=== PATIENT | female | born 1940 | race Caucasian/White ===

== ENCOUNTER 2016-02-08 07:00 | Inpatient (IN) | payer OTHER ==
[~2016-02-08] VITALS: Ht 144.8 cm; Wt 51.7 kg
[~2016-02-08 07:00] MED LIST: DIPHENOXYLATE-1 EACH PO; HYDROCHLOROTHIA25 M1; HYDROCHLOROTHIA25 M1 PO; IRON325 M3 PO; K-TAB ER10 MEQ PO; KLOR-CON20 ME1 PO; LOMOTIL 2.5-0.1 EACH PO; LYRICA25 M1 PO; METOPROLOL SUCC25 M1 PO; METOPROLOL TART25 M1 PO; OCTREOTIDE100 MCG/1 SC; POTASSIUM CHLO20 ME2 PO; PROBIOTIC & AC1 EACH PO; PROCHLORPERAZIN10 MG PO; TUMS200 MG PO; TYLENOL #31 TAB PO; TYLENOL325 M1 PO; VITAMIN B COMP1 EACH PO; VITAMIN C1000 M4 PO; VITAMIN D3400 UNI1 PO; ZOFRAN4 M2 PO
--- NOTE | 2016-03-06 09:39 | History & Physical Pre-Op ---
General Information and HPI History of Present Illness: patient returns for consideration of reversal of her colostomy. She presented in May 2015 with colonic obstruction requiring emergent rectosigmoid resection of a T4b N0 colon cancer. She failed adjuvant chemotherapy due to severe diarrhea. She has since undergone completion colonoscopy and is ready to have her colostomy reversed. She feels much better since cessation of her chemotherapy. She also feels that overall her health is much better than it was prior to surgery due to chronic fatigue which has since resolved. Allergies/Medications Allergies: Coded Allergies: aloe (Mild, RASH 06/06/15) Home Med list Metoprolol Succinate 25 MG TAB.ER.24H 1 TAB PO QAM BP (Reported) Pregabalin (Lyrica) 25 MG CAPSULE 1 CAP PO QHS NERVE SENSATION IN BACK ( Reported) Past History Medical History Neurological: NONE EENT: NONE Cardiovascular: hypertension, "SLIGHT HEART ATTACK" Respiratory: pneumonia Gastrointestinal: NONE Hepatic: NONE Renal: NONE Musculoskeletal: chronic back pain, polio Psychiatric: NONE Endocrine: NONE Blood Disorders: NONE Cancer(s): colon/rectal cancer, SPINAL TUMOR History of MRSA: Yes History of VRE: No History of CDIFF: No Surgical History Pertinent Surgical History: appendectomy, colon resection, cataract removal, c- section, hip replacement Past Family/Social History Family History Relations & Conditions if any uncles (Leukemia in one uncleThroat Cancer in another uncle). FATHER (colon cancer). MOTHER (ovarian cancer). Psychosocial History Services at Home None Functional Ability ADLs Independent: dressing, eating, toileting, bathing. Ambulation: independent IADLs Independent: shopping, housework, finances, food prep, telephone, transportation , medication admin. Review of Systems Review of Systems: Patient reports weight gain (5lbs) but reports no fatigue, no fever, no night sweats, no significant weight loss, and no exercise intolerance. She reports no abnormal moles, no jaundice, no hives, no eczema, and no rashes. She reports no dry eyes, no irritation, no vision change, and no discharge. She reports no hearing loss, no ear pain, no sneezing, no frequent nosebleeds, no nose/sinus problems, no bleeding gums, no snoring, no dry mouth, no mouth ulcers, no oral abnormalities, no teeth problems, no headaches, and no sore throat. She reports no cough, no wheezing, no shortness of breath, and no coughing up blood. She reports no chest pain, no arm pain on exertion, no shortness of breath when walking, no shortness of breath when lying down, no palpitations, and no leg swelling. She reports no abdominal pain, no vomiting, no vomiting blood, normal appetite, no diarrhea, no constipation, no rectal bleeding, and no history of GERD. She reports no incontinence, no difficulty urinating, no hematuria, and no increased frequency. She reports no muscle aches, no muscle weakness, no arthralgias/joint pain, and no back pain. She reports no gynecologic complaints. She reports no issues with sexual function or body image. Exam & Diagnostic Data Last 24 Hrs of Vital Signs/I&O Patient is a 75-year-old female. Constitutional: General Appearance: healthy-appearing, well-nourished, and well- developed. Level of Distress: no acute distress. Ambulation: ambulating normally. Physical Exam: Head: Head: normocephalic and atraumatic. Neck: Neck: supple, trachea midline, no masses, and full range of motion. Thyroid: no enlargement or nodules and non-tender. Lymph Nodes: no cervical LAD, supraclavicular LAD, axillary LAD, or inguinal LAD. Cardiovascular: Heart Auscultation: normal S1 and S2; no murmurs, rubs, or gallops; and regular rate and rhythm. Lungs: Respiratory effort: no dyspnea. Percussion: no dullness, flatness, or hyperresonance. Auscultation: no wheezing, rales/crackles, or rhonchi and breath sounds normal, good air movement, and clear to auscultation. Back: Thoracolumbar Appearance: normal curvature. Abdomen: Inspection and Palpation: no tenderness, guarding, masses, rebound tenderness, or CVA tenderness and soft and non-distended. Bowel Sounds: normal. Liver: non-tender and no hepatomegaly. Spleen: non-tender and no splenomegaly. Hernia: none palpable; functioning stoma LLQ.. Skin: Inspection and palpation: no rash, lesions, ulcer, induration, nodules, jaundice, or abnormal nevi and good turgor. Musculoskeletal:: Extremities: no cyanosis, edema, varicosities, or palpable cord. Motor Strength and Tone: normal tone and motor strength. Joints, Bones, and Muscles: no contractures, malalignment, tenderness, or bony abnormalities and normal movement of all extremities. Psychiatric: Insight: good judgement and insight. Mental Status: normal mood and affect and active and alert. Orientation: to time, place, and person. Memory: recent memory normal and remote memory normal. Assessment/Plan Assessment/Plan: 1. Primary malignant neoplasm of rectosigmoid junction - well recovered following rectosigmoid resection with end colostomy. chemotherapy was discontinued due to adverse reaction. She has since undergone colonoscopy which shows no other areas of neoplasia. She is ready for colostomy reversal. Cardiac preop completed. preop bowel prep ordered. 2. Colostomy present Z93.3: Colostomy status Discussion Notes Discussed the risk of surgery including but not limited to: bleeding requiring transfusion, infection, anastomotic leak requiring reoperation as well as medical complications including cardiac, pulmonary and thromboembolism. As Ranked By This Provider Problem List: 1. Cancer of rectosigmoid junction 2. Colostomy status
[2016-03-07] MEDS ORDERED: LISINOPRIL10 M1 PO (13:04)
--- NOTE | 2016-03-07 13:05 | Admission Core Measures ---
Admission Meds I reviewed the following Meds: Current Medications Sig/Samantha Start time Last Medication Dose Stop Time Status Admin Cefazolin Sodium 2,000 MG ONCE 03/07 0000 NR (Kefzol-Ancef Inj) 03/07 235 Lisinopril 10 MG DAILY 03/08 1000 UNVr (Prinivil) Metoprolol Tartrate 25 MG QAM 03/08 1000 UNVr (Lopressor) Metronidazole 500 MG ONCE 03/07 0000 NR (Flagyl) 03/07 235 Sodium Chloride 100 ML (Normal Saline 0.9%) Pregabalin 25 MG .[QHS] 03/07 1315 UNVr (Lyrica) Acute Coronary Syndrome Inclusion Criteria ACS Diagnosis No Inpatient Core Measures LDL Reminder: If No, please order W/I first 24hr of stay Congestive Heart Failure Inclusion Criteria CHF Diagnosis No Cerebrovascular accident Inclusion Criteria CVA/TIA Diagnosis No Inpatient Core Measures Bedside Swallow Eval Reminder: If BSE failed, place ST order Antithrombotic Reminder: Order Antithrombotic Medication by end of day 2 Antithrombotic Reminder: Document Reason Antithrombotic Not ordered by end of day 2 AFIB/Flutter Reminder: If Present, add to problem list AFIB/Flutter Reminder: Order Anticoag Medication for pts with AFIB/Flutter Atherosclerosis Reminder: If Present, add to problem list LDL Reminder: If No, please order W/I first 24hr of stay PT Order Reminder: If No, please order Venous thromboembolism Inpatient Core Measures VTE Risk Factors: Age > 40, Surgery VTE Prophylaxis [facility] d/t No contraindications No VTE Pharm Prophylaxis d/t No contraindications Inclusion Criteria - Per Current guidelines, there needs to be overlap - treatment for the first 5 days of Warfarin therapy. - Parenteral Anticoagulation (IV or SC) needs to be - given along with Warfarin therapy. VTE Diagnosis No VTE Type NONE VTE Confirmed by (Test) NONE Problem List As ranked by this Provider includes Assessment & Plan 1. Colostomy status HOME MEDS Home Med List Lisinopril 10 MG TABLET 1 TAB PO DAILY BLOOD PRESSURE (Reported) Metoprolol Succinate 25 MG TAB.ER.24H 1 TAB PO QAM BP (Reported) Pregabalin (Lyrica) 25 MG CAPSULE 1 CAP PO QHS NERVE SENSATION IN BACK ( Reported)
--- NOTE | 2016-03-07 13:09 | Operative Report ---
Operative/Inv Procedure Report Surgery Date: 03/07/16 Name of Procedure: Colostomy reversal with lysis of adhesions Pre-Operative Diagnosis: Colon cancer Colostomy status Colon cancer Colostomy status Post-Operative Diagnosis: Same same Estimated Blood Loss: 50ml to 100ml Surgeon/Stockfeed Miller: ED GUPTA,NOAH Faulkner/Brittny CRUZ Anesthesia: general endotracheal tube Drains: None Specimens: Colostomy Operative Indication: Patient presents after diverting colostomy with rectal resection for obstructing T4 rectal cancer in May 2015. She underwent adjuvant chemotherapy and has completed follow-up colonoscopy. She presents for colostomy reversal Operative/Procedure Note Note: After consent she is brought to the operating room and laid supine. Gen. anesthesia was obtained she's placed in lithotomy position. The stoma was closed with a suture. Her abdomen was then prepped and draped. A midline incision was opened through pre-existing scar sharply. We dissected down to the fascia with cautery. The peritoneum was entered sharply we mobilized. Adhesions of omentum to the anterior abdominal wall were taken down with sharp and cautery dissection. A Bookwalter retraction system was then placed. There were numerous loops of small bowel adhered to the pelvis. These loops of adhesions small bowel were taken down with sharp dissection. One loop in particular was plastered to the presacral space due to the previous lymphadenectomy. We took about an hour to lyse a single loop of small bowel and eventually were able to bring up out of the pelvis and into the right upper quadrant where was packed out of the way. There is no enterotomy. The rectal stump was identified and was very low in the pelvis. We then took down the stoma by making an ellipse of skin sharply. We then dissected the stoma through subcutaneous tissues tissues with cautery. We then reduced into the perineal cavity and disconnected it from the undersurface. This was done with cautery as well. I then looked at the bowel. There was a small serosal tear which was repaired with interrupted 3-0 silk sutures. The stoma itself was intact and viable without evidence of serosal injury otherwise. So we took about 4 cm of the stoma and transected it and suture ligating the vessels and then placing a automatic purse javi and dividing the bowel. The stone was passed off the field. The colon was incised to a 28 EEA stapler. The anvils placed in her string tied down. The fatty tissue overlying the proposed anastomotic site was then taken off with cautery. I then broke scrub and went down below. Rigid proctoscopy revealed a very short stump, 5 cm. We placed the EEA stapler up through the rectal stump and created an and the anastomosis under direct vision the camera. There were 2 intact donuts. Testing of the anastomosis under water revealed no evidence of air leak. We then's irrigated the pelvis normal saline. The stoma site was fascia was closed with 0 Maxon sutures in 2 layers. The midline fascia was closed with 0 Maxon suture. Skin was closed with amelia. A portion of the stoma site was left open for packing with 1 inch iodoform gauze. Sterile dressings applied. Sponge and needle counts are correct CC: RACHEL RITCHIE DO; DAMARI GUPTA,DARNELL Torre
[2016-03-07 14:45] VITALS: BP 130/60
[2016-03-07 16:01] VITALS: BP 100/60
--- NOTE | 2016-03-07 16:38 | PN- General Surgery ---
Subjective Subjective: Post op check Awake, alert No complaints, denies nausea Pain well controlled - had a tap block and hasn't felt any pain post op Objective Vital Signs and I&Os Vital Signs Date Time Temp Pulse Resp B/P Pulse O2 O2 Flow FiO2 Ox Delivery Rate 03/07 1601 97.1 78 20 100/60 97 Room Air 03/07 1445 97.4 68 18 130/60 100 Room Air Intake & Output 03/07 1600 03/07 0800 03/07 0000 03/06 1600 03/06 0800 03/06 0000 Intake Total Output Total Balance Patient 115 lb Weight Physical Exam: afebrile, vss good urine output in rebollar General: alert and oriented times three Chest:clear anteriorly bilaterally, RRR Abd: soft, no bs, nondistended Dressings: slight bloody staining on dressing but dry Current Medications: Current Medications Sig/Samantha Start time Last Medication Dose Route Stop Time Status Admin Acetaminophen 650 MG Q4P PRN 03/07 1500 AC PO Cefazolin Sodium 2,000 MG ONCE 03/07 0000 DC IV 03/07 2359 Dextrose/Sodium 1,000 ML .[id number] 03/07 1500 AC Chloride IV Heparin Sodium 5,000 UNIT Q8 03/07 1400 AC 03/07 (Porcine) SC 1606 Lisinopril 10 MG DAILY 03/08 1000 AC PO Metoprolol Succinate 25 MG QAM 03/08 1000 AC PO Metronidazole 500 MG ONCE 03/07 0000 DC Sodium Chloride 100 ML IV 03/07 2359 Morphine Sulfate 2 MG Q3P PRN 03/07 1500 AC IV Ondansetron HCl 4 MG Q6P PRN 03/07 1500 AC IV Oxycodone/ 1 TAB Q4P PRN 03/07 1500 AC Acetaminophen PO Oxycodone/ 2 TAB Q4P PRN 03/07 1500 AC Acetaminophen PO Pregabalin 25 MG AT BEDTIME 03/07 2200 AC PO Assessment/Plan Assessment/Plan 75 yo female s/p colostomy reversal clears in the morning may have ice chips rebollar out in am PT in am - wbat pain mgmt Core Measures/Miscellaneous Venous Thromboembolism VTE Risk Factors: Age > 40, Surgery VTE Contraindications: No Contraindications VTE Prophylaxis Ordered Inpt Mech & Pharm VTE Diagnosis: No VTE Type: NONE VTE Confirmed by (Test): NONE Beta James Is Beta James a Home Med? Yes If Yes, Was This Ordered Today? Yes Antibiotics Is Patient on Antibiotics? No
[2016-03-07 18:10] VITALS: BP 102/60
[2016-03-07 19:58] VITALS: BP 100/62
[2016-03-08] VITALS (9 sets, daily range): BP systolic 90–170; BP diastolic 50–70
--- NOTE | 2016-03-08 01:19 | NUR ---
LATE ENTRY 03/07/16: PT REFUSES ALPS. NANCY ENGLISH AWARE.
--- NOTE | 2016-03-08 08:03 | PN- General Surgery ---
See Addendum Subjective Subjective: Awake, alert post op Complaints of pain overnight - relieved with meds Passed small amount of liquid stool last night Tolerating water this morning - awaiting tray of liquids Passed flatus this morning Objective Vital Signs and I&Os Vital Signs Date Time Temp Pulse Resp B/P Pulse O2 O2 Flow FiO2 Ox Delivery Rate 03/08 0654 98.2 75 20 140/60 96 Room Air 03/08 0402 98.2 75 20 154/56 96 Room Air 03/08 0025 98.8 75 20 130/60 97 Room Air 03/07 1958 97.9 87 20 100/62 99 Room Air 03/07 1810 98.0 66 20 102/60 97 Room Air 03/07 1601 97.1 78 20 100/60 97 Room Air 03/07 1445 97.4 68 18 130/60 100 Room Air Intake & Output 03/08 1600 03/08 0800 03/08 0000 03/07 1600 03/07 0800 03/07 0000 Intake Total 600 840 Output Total 350 480 Balance 250 360 Intake, IV 600 600 Intake, Oral 240 Number 0 Bowel Movements Output, Urine 350 480 Patient 115 lb Weight Physical Exam: afebrile, vss General: alert and oriented times three Chest: clear anteriorly bilaterally, RRR Abd: soft, nt/nd, good bs Ext: warm, no edema Wounds: mild bloody staining on dressings, dressings changed, no active bleeding or oozing amelia intact Assessment/Plan Assessment/Plan 75 yo female s/p colostomy reversal fu labs dc rebollar ?advance to fulls PT to help ambulate Core Measures/Miscellaneous Venous Thromboembolism VTE Risk Factors: Age > 40, Surgery VTE Contraindications: No Contraindications VTE Prophylaxis Ordered Inpt Mech & Pharm VTE Diagnosis: No VTE Type: NONE VTE Confirmed by (Test): NONE Beta James Is Beta James a Home Med? Yes If Yes, Was This Ordered Today? Yes Antibiotics Is Patient on Antibiotics? No
[2016-03-08 08:58] LABS: ABSOLUTE BASOPHIL COUNT 0 /CUMM (0.0-0.2); ABSOLUTE EOSINOPHIL COUNT 0 /CUMM (0.0-0.7); ABSOLUTE LYMPH COUNT 1.2 /CUMM (1.2-3.4); ABSOLUTE MONOCYTE COUNT 0.9 /CUMM (0.10-0.60); EOSINOPHIL % 0.2 % (0-5)
[2016-03-08 09:29] LABS: ABSOLUTE GRANULOCYTE CT 7.1 /CUMM (1.4-6.5); BASOPHIL % 0.1 % (0.0-2.0); GRANULOCYTE % 76.9 % (42.2-75.2); MEAN CORPUSCULAR HGB 28.5 PG (27.0-31.0); MEAN CORPUSCULAR HGB CONC 33.5 G/DL (33.0-37.0); MEAN CORPUSCULAR VOLUME 85.3 FL (81.0-99.0); MEAN PLATELET VOLUME 8.5 FL (7.4-10.4); PLATELET COUNT 154 /CUMM (130-400); RBC DISTRIBUTION WIDTH 15.7 % (11.5-14.5)
[2016-03-08 09:36] LABS: HEMATOCRIT 31.5 % (37-47); WHITE BLOOD CELL COUNT 9.2 /CUMM (4.8-10.8)
--- NOTE | 2016-03-08 10:54 | NUR ---
Physical Therapy: Patient refused treatment session secondary to complaints of significant pain. Was not willing to try and perform bed level activities. Will try again in PM.
--- NOTE | 2016-03-08 13:38 | NUR ---
Physical Therapy: Patient refused physical therapy a second time this afternoon. Complained of significant abdominal pain associated with her surgery and did not want to make it worse with movement. She refused bed level TherEx. Will attempt to see the patient tomorrow.
--- NOTE | 2016-03-08 16:18 | NUR ---
A X 2 TO BSC AT THIS TIME PT URINATED 250 ML, AND SMALL DARK BROWN, LIQUID BM WITH SCANT AMT BLOOD WHEN PT WIPED. SURGICAL PA MADE AWARE.
--- NOTE | 2016-03-08 17:46 | NUR ---
MST REPORTED AT THIS TIME THAT PT'S BP IS 100/60. BP CHECKED BY THIS NURSE AT THIS TIME 90/50, HR 60 ALL OTHER VSS. DENIES DIZZINESS OR LIGHTHEADEDNESS. IVF INFUSING ORDERED. PT JUST HAD DINNER-50% OF CLEAR LIQUID TRAY. DRESSING TO ABD CHANGED, SMALL AMT OF SS DRAINAGE THROUGH DRESSING. SURGICAL PA MADE AWARE, NO NEW ORDERS, RECHECK IN 1 HOUR. WILL CONTINUE TO MONITOR.
--- NOTE | 2016-03-08 20:56 | NUR ---
bp at this time 102/54 hr 60 denies symptoms of lightheadedness or dizziness but states "im concerned about my blood pressure, its never been this up and down and i just dont really feel like myself" stated that she came off of her bp meds preop but was restarted on them here postop and stated "i dont know if i was supposed to be i cant remember what Dr. Mejia said" call placed to surgical pa at this time to make aware.
--- NOTE | 2016-03-08 22:32 | NUR ---
SPOKE WITH SURGICAL NANCY DENTON AT THIS TIME SEE NEW ORDER TO INCREASE ORDERED IVF RATE FROM 75 TO 100 DUE TO BP, SEE PREVIOUS NOTES. ALSO, PT CONTINUES TO C/O ITCHING, SEE NEW ORDER FOR PO BENEDRYL. BENEDRYL GIVEN ORDERED . WILL IVF INCREASED TO 100 ML/HR. WILL CONTINUE TO MONITOR.
[2016-03-09 00:46] VITALS: BP 110/56
[2016-03-09 06:40] VITALS: BP 114/54
--- NOTE | 2016-03-09 07:16 | PN- General Surgery ---
See Addendum Subjective Subjective: NAEO. Patient without new c/o. Pain well controlled. Tolerating clear liquid diet without n/v. +flatus, +BM. OOB and ambulating. Denies CP/SOB. Objective Vital Signs and I&Os Vital Signs Date Time Temp Pulse Resp B/P Pulse O2 O2 Flow FiO2 Ox Delivery Rate 03/09 0640 98.8 84 20 114/54 95 Room Air 03/09 0046 74 110/56 03/08 2239 97.1 63 19 102/56 93 Room Air 03/08 2046 97.1 63 19 102/54 93 Room Air 03/08 1858 106/50 03/08 1746 90/50 03/08 1734 98.1 60 19 100/60 94 Room Air 03/08 1200 98.6 70 18 170/70 96 Room Air 03/08 0940 68 110/68 03/08 0940 68 110/68 Intake & Output 03/09 0800 03/09 0000 03/08 1600 03/08 0800 03/08 0000 03/07 1600 Intake Total 1010 1250 1080 600 840 Output Total 350 500 120 350 480 Balance 660 750 960 250 360 Intake, IV 800 800 400 600 600 Intake, Oral 210 450 680 240 Number 1 0 0 Bowel Movements Output, Urine 350 500 120 350 480 Patient 115 lb Weight Physical Exam: General: NAD, comfortable, A&Ox3 Chest: CTAB. Heart S1S2 normal. Abdomen: soft, nondistended. Probably tender to palpation. Midline incision intact with amelia with small amount of sanguinous drainage around umbilicus. Otherwise, no erythema, swelling, signs of infection. Old stoma site with packing in middle with serosanguineous drainage. +Bowel sounds x4 quadrants Ext: No calve swelling/TTP, neurovascularly intact bilateral lower extremities Current Medications: Current Medications Sig/Samantha Start time Last Medication Dose Route Stop Time Status Admin Acetaminophen 650 MG Q4P PRN 03/07 1645 AC PO Acetaminophen 650 MG Q4P PRN 03/07 1500 AC PO Dextrose/Sodium 1,000 ML .Q10H 03/07 1500 DC 03/08 Chloride IV 2147 Diphenhydramine HCl 25 MG ONCE ONE 03/08 2200 DC 03/08 PO 03/08 2201 2219 Diphenhydramine HCl 50 MG Q4P PRN 03/08 1630 DC IV Diphenhydramine HCl 25 MG ONCE ONE 03/08 1415 DC 03/08 IV 03/08 1416 1418 Heparin Sodium 5,000 UNIT Q8 03/07 1400 AC 03/09 (Porcine) SC 0547 Ketorolac 15 MG ONCE ONE 03/08 1200 DC 03/08 Tromethamine IV 03/08 1201 1159 Lisinopril 10 MG DAILY 03/08 1000 AC 03/08 PO 0940 Magnesium Sulfate 1 GM Q2H 03/08 0930 DC 03/08 Dextrose/Water 100 ML IV 03/08 1329 1155 Metoprolol Succinate 25 MG QAM 03/08 1000 AC 03/08 PO 0940 Morphine Sulfate 2 MG Q3P PRN 03/07 1500 DC 03/08 IV 0641 Ondansetron HCl 4 MG .STK-MED ONE 03/08 0933 DC IM 03/08 0934 Ondansetron HCl 4 MG Q6P PRN 03/07 1500 AC 03/08 IV 0940 Oxycodone/ 1 TAB Q4P PRN 03/07 1500 AC 03/08 Acetaminophen PO 0343 Oxycodone/ 2 TAB Q4P PRN 03/07 1500 AC 03/09 Acetaminophen PO 0413 Pregabalin 25 MG AT BEDTIME 03/07 2200 AC 03/08 PO 2147 Results Last 48 Hours of Labs: Laboratory Tests 03/08 0615 Chemistry Sodium (137 - 145 mmol/L) 135 L Potassium (3.5 - 5.1 mmol/L) 4.0 Chloride (98 - 107 mmol/L) 104 Carbon Dioxide (22 - 30 mmol/L) 23 Anion Gap (5 - 16) 7 BUN (7 - 17 mg/dL) 13 Creatinine (0.5 - 1.0 mg/dL) 0.7 Estimated GFR (>60 ml/min) > 60 BUN/Creatinine Ratio (7 - 25 %) 18.6 Magnesium (1.6 - 2.3 mg/dL) 1.5 L Hematology CBC w Diff NO MAN DIFF REQ WBC (4.8 - 10.8 /CUMM) 9.2 RBC (4.20 - 5.40 /CUMM) 3.70 L Hgb (12.0 - 16.0 G/DL) 10.6 L Hct (37 - 47 %) 31.5 L MCV (81.0 - 99.0 FL) 85.3 MCH (27.0 - 31.0 PG) 28.5 RDW (11.5 - 14.5 %) 15.7 H Plt Count (130 - 400 /CUMM) 154 MPV (7.4 - 10.4 FL) 8.5 Gran % (42.2 - 75.2 %) 76.9 H Lymphocytes % (20.5 - 51.1 %) 12.6 L Monocytes % (1.7 - 9.3 %) 10.2 H Eosinophils % (0 - 5 %) 0.2 Basophils % (0.0 - 2.0 %) 0.1 Absolute Granulocytes (1.4 - 6.5 /CUMM) 7.1 H Absolute Lymphocytes (1.2 - 3.4 /CUMM) 1.2 Absolute Monocytes (0.10 - 0.60 /CUMM) 0.9 H Absolute Eosinophils (0.0 - 0.7 /CUMM) 0 Absolute Basophils (0.0 - 0.2 /CUMM) 0 PUBS MCHC (33.0 - 37.0 G/DL) 33.5 Assessment/Plan Assessment/Plan 75yo F POD#2 s/p colsotomy reversal. AVSS, patient progressing well. - full liquid diet - pain control - PRN zofran - DC IVF - I/O's - OOB and ambulate - sc heparin and ALPS for DVT PPx - dc planning - will d/w attending Core Measures/Miscellaneous Venous Thromboembolism VTE Risk Factors: Age > 40, Surgery VTE Contraindications: No Contraindications VTE Prophylaxis Ordered Inpt Mech & Pharm VTE Diagnosis: No VTE Type: NONE VTE Confirmed by (Test): NONE Beta James Is Beta James a Home Med? Yes If Yes, Was This Ordered Today? Yes Antibiotics Is Patient on Antibiotics? No
[2016-03-09 10:39] LABS: ABSOLUTE BASOPHIL COUNT 0 /CUMM (0.0-0.2); ABSOLUTE EOSINOPHIL COUNT 0.4 /CUMM (0.0-0.7); ABSOLUTE GRANULOCYTE CT 4.1 /CUMM (1.4-6.5); ABSOLUTE LYMPH COUNT 2.3 /CUMM (1.2-3.4); ABSOLUTE MONOCYTE COUNT 0.6 /CUMM (0.10-0.60); BASOPHIL % 0.4 % (0.0-2.0); EOSINOPHIL % 5.3 % (0-5); GRANULOCYTE % 55.4 % (42.2-75.2); HEMATOCRIT 32.1 % (37-47); MEAN CORPUSCULAR HGB 28.8 PG (27.0-31.0); MEAN CORPUSCULAR HGB CONC 33.6 G/DL (33.0-37.0); MEAN CORPUSCULAR VOLUME 85.8 FL (81.0-99.0); MEAN PLATELET VOLUME 8.2 FL (7.4-10.4); PLATELET COUNT 146 /CUMM (130-400); RBC DISTRIBUTION WIDTH 16.1 % (11.5-14.5); RED BLOOD CELL CT 3.74 /CUMM (4.20-5.40); WHITE BLOOD CELL COUNT 7.4 /CUMM (4.8-10.8)
[2016-03-09 14:24] VITALS: BP 120/58
[2016-03-09] MEDS ORDERED: PERCOCET 5-3251 EACH PO (15:22)
--- NOTE | 2016-03-09 15:25 | Patient Discharge Instructions ---
Discharge Instructions General Discharge Information You were seen/treated for: Colostomy You had these procedures: 03/07/16 Open colostomy reversal Watch for these problems: Redness, swelling, fever, purulent drainage, signs of infection. uncontrolled pain. Excessive bleeding from incisions and/or rectum. Chest pain. Shortness of breath. Call Surgeon to remove: [place] (10-14 days) Do not soak the wound: Yes No bath, but you may shower: Yes Other wound care: Daily dressing changes with packing to stoma site and overlying dry dressing. You may apply dry dressing to midline incision if desired or leave open to air. Diet Continue normal diet: Yes Activity Full Activity/No Limits: No Activity Self Limited: No Pounds, do NOT lift more than: 15 Other activity limits: No strenuous activity and/or exercise Acute Coronary Syndrome Inclusion Criteria At DC or during hospital stay patient has or had the following: ACS DIAGNOSIS No Discharge Core Measures Meds if any: Prescribed or Continued at Discharge Meds if any: NOT Prescribed or Continued at Discharge Congestive Heart Failure Inclusion Criteria At DC or during hospital stay patient has or had the following: CHF DIAGNOSIS No Discharge Core Measures Meds if any: Prescribed or Continued at Discharge Meds if any: NOT Prescribed or Continued at Discharge Cerebrovascular accident Inclusion Criteria At DC or during hospital stay patient has or had the following: CVA/TIA Diagnosis No Discharge Core Measures Meds if any: Prescribed or Continued at Discharge Meds if any: NOT Prescribed or Continued at Discharge Venous thromboembolism Inclusion Criteria VTE Diagnosis No VTE Type NONE VTE Confirmed by (Test) NONE Discharge Core Measures - Per Current guidelines, there needs to be overlap - treatment for the first 5 days of Warfarin therapy. - If discharged on Warfarin prior to 5 days of - overlap therapy, the patient will need to be - assessed for post discharge needs including - *Post discharge parental anticoagulation - *Warfarin and/or parental anticoagulation education - *Follow up date to check INR post discharge At least 5 days overlap therapy as Inpatient No Meds if any: Prescribed or Continued at Discharge Note: Overlap Therapy is Warfarin and Anticoagulant Meds if any: NOT Prescribed or Continued at Discharge
[2016-03-09 22:19] VITALS: BP 110/52
[2016-03-10 07:14] VITALS: BP 176/80
--- NOTE | 2016-03-10 08:07 | PN- General Surgery ---
See Addendum Subjective Subjective: Patient has no major complaints this morning. She started moving her bowels and tolerated heart healthy diet last night. No further nausea or vomiting. She is voiding spontaneously and continues to pass flatus. She ambulates with a rolling walker occasionally. Otherwise denies headache, dizziness, chest pain, shortness of breath. Objective Vital Signs and I&Os Vital Signs Date Time Temp Pulse Resp B/P Pulse O2 O2 Flow FiO2 Ox Delivery Rate 03/10 0714 99.7 79 20 176/80 96 03/09 2219 98.1 82 18 110/52 95 Room Air 03/09 1424 99.6 82 18 120/58 95 03/09 1022 138/70 Intake & Output 03/10 1600 03/10 0800 03/10 0000 03/09 1600 03/09 0800 03/09 0000 Intake Total 748 675 8899 1010 1250 Output Total 196 916 1482 350 500 Balance -50 89 150 660 750 Intake, IV 10 10 800 800 Intake, Oral 098 720 2658 210 450 Number 1 1 Bowel Movements Output, Stool 1 Output, Urine 796 235 5667 350 500 Patient 114 lb Weight Physical Exam: Gen.: Patient is awake and alert. No acute distress. She is seen lying in her bed comfortably. Cardiac: Regular Pulmonary: Lungs are clear to auscultation bilaterally. She has occasional crackles at the bases bilaterally. Abdomen: Soft and nondistended. There is mild tenderness at the left stoma site. Packing was removed from the ostomy site. There is a small amount of drainage, which is expected. Packing was replaced. Incisions are otherwise clean and intact. Normoactive bowel sounds were heard. Extremities: There is 1+ trace edema, possibly slightly greater on the left versus the right. No calf tenderness is appreciated. No labs were drawn today as patient is stable. Assessment/Plan Assessment/Plan Patient is a 75-year-old female with a history of coronary artery disease, history of SD, and history of colon cancer who is status post diverting colostomy in May 2015. She underwent adjuvant chemotherapy and return to this admission for colostomy reversal. She is now postoperative day #3, with good bowel function and toleration of her diet. Plan: -Continue heart healthy diet. -Continue to encourage ambulation and deep breathing. Patient does not wish to use a spirometer. -Pain control with Percocet as needed. -Continue daily packing changes until the ostomy site stops draining and heals. -Continue DVT prophylaxis with subcutaneous heparin and Alps until discharge. -No further antibiotics are needed. -Continue home meds, including beta james. -Plan for discharge today with home health services to assist with wound care. -Will discuss with attending. Core Measures/Miscellaneous Venous Thromboembolism VTE Risk Factors: Age > 40, Surgery VTE Contraindications: No Contraindications VTE Prophylaxis Ordered Inpt Mech & Pharm VTE Diagnosis: No VTE Type: NONE VTE Confirmed by (Test): NONE Beta James Is Beta James a Home Med? Yes If Yes, Was This Ordered Today? Yes Antibiotics Is Patient on Antibiotics? No
[2016-03-10 09:56] VITALS: BP 176/80
--- NOTE | 2016-03-10 10:18 | Surgical Discharge Summary ---
Visit Information Visit Dates Admission Date: 03/07/16 Discharge Date: 03/10/16 History of Present Illness Chief Complaint: colostomy Medical History Neurological: NONE EENT: NONE Cardiovascular: hypertension, "SLIGHT HEART ATTACK" Respiratory: pneumonia Gastrointestinal: NONE Hepatic: NONE Renal: NONE Musculoskeletal: chronic back pain, polio Psychiatric: NONE Endocrine: NONE Blood Disorders: NONE Cancer(s): colon/rectal cancer, SPINAL TUMOR PATIENT FINANCIAL ADVOCATE/Reproductive: NONE History of MRSA: Yes History of VRE: No History of CDIFF: No Isolation History: Contact Surgical History Pertinent Surgical History: appendectomy, colon resection, cataract removal, c- section, hip replacement, colostomy reversal Family History Relations & Conditions If Any: uncles (Leukemia in one uncleThroat Cancer in another uncle). FATHER (colon cancer). MOTHER (ovarian cancer). Psychosocial History Who Do You Live With? Spouse Services at Home: None What is Your Primary Language? Ethiopian Review of Systems: not assessed at d/c Hospital Course Course Attending Physician: NOAH WARD MD [facility]: Admitted to the surgical service after uncomplicated colostomy reversal. She had a short lived ileus lasting less than 24 hours. Diet was advanced and patient d/ c home on POD 3 Allergies: Coded Allergies: aloe (Mild, RASH 06/06/15) Significant Procedures: Colostomy reversal Disposition Summary Disposition Principal Diagnosis: Colon cancer Additional Diagnosis: colostomy status Discharge Disposition: home health services Discharge Instructions General Discharge Information Code Status: Full Code Patient's Diet: low fiber Patient's Activity: no lifting Follow-Up Instructions/Appts: two weeks for staple removal. Medications at Discharge Discharge Medications: Continue taking these medications: Pregabalin (Lyrica) 25 MG CAPSULE 1 Capsule ORAL TAKE AT BEDTIME Comments: DOCUMENTED PER CMR DURING PRE-SX INTERVIEW GIVEN 08/30/15 AT 2200 Metoprolol Succinate (Metoprolol Succinate) 25 MG TAB.ER.24H 1 Tablet ORAL Every Morning Qty = 90 Comments: GIVEN 08/31/15 AT 0900 Lisinopril (Lisinopril) 10 MG TABLET 1 Tablet ORAL DAILY Start taking the following new medications: Oxycodone HCl/Acetaminophen (Percocet 5-325 MG Tablet) 5 MG-325 MG TABLET 1-2 Tablet ORAL EVERY 4-6 HOURS as needed for PAIN Qty = 30 No Refills Copies To: RACHEL RITCHIE DO
== END 2016-03-10 13:44 | disposition home health service (06) | DRG 331 ==
LOC: ENRESERVTM → ENRESERVDT → 2NA 03-07 03:19 → SDA 03-07 03:19 → EDBEDREQ 03-07 12:45 → 2NA 03-07 14:41 → CMPBEDREQ 03-08 07:38 → 2NA 03-10 13:44
PROVIDERS: Physician Assistant Surgical; ADMIT Surgery
PROC: 0DBN0ZZ Excision of Sigmoid Colon, Open Approach (ICD-10-PCS; principal; 2016-03-07)
PROC: 0DN80ZZ Release Small Intestine, Open Approach (ICD-10-PCS; 2016-03-07)
DX: Z43.3 Encounter for attention to colostomy (principal); I10 Essential (primary) hypertension; I25.10 Atherosclerotic heart disease of native coronary artery without angina pectoris; I25.2 Old myocardial infarction; Z85.038 Personal history of other malignant neoplasm of large intestine; Z86.12 Personal history of poliomyelitis
CPT/HCPCS: 2NAP; 36415; 82436; 87086; 88304; 97110-GO; 97116-GO; 97161-GP; 97530-GO; C9399; J0131; J0690; J1200; J1644; J2405; J7042; J7060